=== PATIENT | female | born 1990 | race African-American/Black ===

== ENCOUNTER 2022-08-04 10:30 | Emergency (ER) | payer MEDICAID ==
[~2022-08-04] VITALS: Ht 167.6 cm; Wt 127.0 kg
[2022-08-04] MEDS ORDERED: 0.9%NACL 1000ML 1,000 ML IV ONE (11:30)
[2022-08-04 12:08] LABS: BASOPHILS % (AUTO) 0.3 % (0.0-5.0); EOSINOPHILS % (AUTO) 0.3 % (0.0-8.0); HEMATOCRIT 26.7 % (36-48); LYMPHOCYTES % (AUTO) 33.5 % (21.0-51.0); MEAN CORPUSCULAR HEMOGLOBIN 30.2 pg (27.0-33.0); MEAN CORPUSCULAR HGB CONC 34.1 g/dL (32.0-36.0); MEAN CORPUSCULAR VOLUME 88.7 fL (79-99); MONOCYTES % (AUTO) 8.5 % (3.0-13.0); PLATELET COUNT (AUTO) 193 K/uL (130-400); RED BLOOD CELL COUNT(AUTO) 3.01 MIL/uL (4.00-5.50); RED CELL DISTRIBUTION WIDTH 13.2 % (11.0-15.5); WHITE BLOOD COUNT (AUTO) 7.3 K/uL (4.8-10.8)
[2022-08-04 12:22] LABS: ALBUMIN 2.9 g/dL (3.5-5.0); CREATININE 0.7 mg/dL (0.5-1.5); POTASSIUM 3.2 mmol/L (3.5-5.1); TOTAL PROTEIN, SERUM 5.8 g/dL (6.0-8.3)
[2022-08-04] MEDS ORDERED: IOHEXOL 350 MG/ML 100ML INFUS..BTL IV ONE (14:55)
[2022-08-04] MEDS ORDERED: ONDANSETRON ODT 4MG TAB SL STA (15:00)
[2022-08-04] MEDS ORDERED: ONDANSETRON 4MG INJ ONE (15:01)
[2022-08-04 16:49] VITALS: BP 111/78
== END 2022-08-04 17:03 | disposition home or self-care (01) ==
LOC: EDH 10:30
DX: R53.1 Weakness (principal); E86.0 Dehydration; J45.909 Unspecified asthma, uncomplicated
CPT/HCPCS: 99285; 96360; 71275; 96361; 80053; 85025; 85378; 36415; J7030; J2405; Q9967